=== PATIENT | female | born 1955 | race Caucasian/White ===

== ENCOUNTER → 2024-05-08 19:03 | Outpatient (REF) | payer MEDICARE, OTHER, SELFPAY | LOC: WDC 19:03 | PROVIDERS: ATTENDING PHYSICIAN Family Medicine | DX: Z12.31 Encounter for screening mammogram for malignant neoplasm of breast (principal) | CPT/HCPCS: 77063; 77067 ==

== ENCOUNTER → 2024-07-02 08:42 | Outpatient (REF) | payer MEDICARE, OTHER, SELFPAY ==
[2024-07-02 10:03] LABS: % Immature Granulocytes 0.2 % (0-0.5); % Lymphocytes 38.7 % (20.5-51.1); % Monocytes 9.8 % (1.7-9.3); % Neutrophils 47.3 % (42.2-75.2); Absolute Basophils 0.1 10^3/uL (0-0.2); Absolute Eosinophils 0.2 10^3/uL (0-0.7); Absolute Lymphocytes 2.3 10^3/uL (1.2-3.4); Absolute Monocytes 0.6 10^3/uL (0.1-0.6); Absolute Neutrophils 2.8 10^3/uL (1.4-6.5); Hematocrit 38.2 % (37.0-47.0); Mean Corp Hgb Conc. 31.4 g/dL (33.0-37.0); Mean Corpuscular Hgb 24.5 pg (27.0-31.0); Mean Corpuscular Volume 78.1 fL (81.0-99.0); Mean Platelet Volume 10.2 fL (7.4-10.4); Nucleated Red Blood Cells % 0 %; Platelet Count 385 10^3/uL (130-400); Red Blood Cell Count 4.89 10^6/uL (4.20-5.40); Red Cell Dist. Width 15.6 % (11.5-14.5)
[2024-07-02 10:36] LABS: ALT (SGPT) 22 U/L (0-35); AST (SGOT) 22 U/L (14-36); Albumin 4.1 g/dl (3.5-5.0); Alkaline Phosphatase 71 U/L (38-126); Blood Urea Nitrogen 12 mg/dl (7-17); Calcium 9.8 mg/dl (8.4-10.2); Carbon Dioxide 27 mmol/L (22-30); Chloride 108 mmol/L (98-107); Glucose 89 mg/dl (70-99); HDL Cholesterol 74 mg/dl; LDL Cholesterol, Calculated 120 mg/dl; Potassium 4.9 mmol/L (3.5-5.1); Sodium 143 mmol/L (135-145); Total Bilirubin 0.6 mg/dl (0.2-1.3); Total Cholesterol 205 mg/dl (50-199); Total Protein 6.6 g/dl (6.3-8.2); Triglyceride 57 mg/dl (10-149); Very Low Density Lipoprotein 11 mg/dl (0-30); eGFR > 60.00
[2024-07-02 10:42] LABS: Vitamin D, 25-OH*** 44.2 ng/mL (30-80)
[2024-07-02 10:55] LABS: TSH 2.48 uIU/ml (0.47-4.68)
== END ==
LOC: REG 08:42
PROVIDERS: ATTENDING PHYSICIAN Family Medicine
DX: Z76.89 Persons encountering health services in other specified circumstances (principal); Z01.89 Encounter for other specified special examinations; Z13.220 Encounter for screening for lipoid disorders; E55.9 Vitamin D deficiency, unspecified; M85.88 Other specified disorders of bone density and structure, other site; Z13.6 Encounter for screening for cardiovascular disorders
CPT/HCPCS: 36415; 80053; 80061; 82306; 84443; 85025

== ENCOUNTER → 2024-07-11 07:33 | Outpatient (REF) | payer MEDICARE, OTHER, SELFPAY | LOC: HWRAD 07:33 | PROVIDERS: ATTENDING PHYSICIAN Family Medicine | DX: R39.15 Urgency of urination (principal); Z87.440 Personal history of urinary (tract) infections | CPT/HCPCS: 76770 ==

== ENCOUNTER → 2024-07-12 10:09 | Outpatient (REF) | payer MEDICARE, OTHER, SELFPAY | LOC: HWRAD 10:09 | PROVIDERS: ATTENDING PHYSICIAN Family Medicine | DX: R19.00 Intra-abdominal and pelvic swelling, mass and lump, unspecified site (principal) | CPT/HCPCS: 76830; 76856 ==

== ENCOUNTER → 2024-07-24 10:05 | Outpatient (REF) | payer MEDICARE, OTHER, SELFPAY | LOC: HWRAD 10:05 | PROVIDERS: ATTENDING PHYSICIAN Specialist; FAMILY PHYSICIAN Family Medicine | DX: N20.0 Calculus of kidney (principal) | CPT/HCPCS: 74176 ==

== ENCOUNTER → 2024-10-09 07:18 | Outpatient (REF) | payer MEDICARE, OTHER, SELFPAY | LOC: PAVMRI 07:18 | PROVIDERS: ATTENDING PHYSICIAN Obstetrics & Gynecology Gynecology; FAMILY PHYSICIAN Family Medicine | DX: N94.89 Other specified conditions associated with female genital organs and menstrual cycle (principal) | CPT/HCPCS: 72197; A9575 ==

== ENCOUNTER → 2024-10-22 12:10 | Outpatient (REF) | payer MEDICARE, OTHER, SELFPAY | LOC: SDSPAT 12:10 | PROVIDERS: ATTENDING PHYSICIAN Obstetrics & Gynecology Gynecologic Oncology; FAMILY PHYSICIAN Family Medicine | DX: R19.04 Left lower quadrant abdominal swelling, mass and lump (principal) | CPT/HCPCS: 36415; 86850; 86900; 86901; 93005 ==

== ENCOUNTER → 2024-10-25 10:20 | Outpatient (REF) | payer MEDICARE, OTHER, SELFPAY ==
[2024-10-25 11:09] LABS: Hematocrit 41.5 % (37.0-47.0); Hemoglobin 13.0 g/dL (12.0-16.0); Mean Corp Hgb Conc. 31.3 g/dL (33.0-37.0); Mean Corpuscular Volume 76.7 fL (81.0-99.0); Nucleated Red Blood Cells % 0 %; Platelet Count 333 10^3/uL (130-400); Red Cell Dist. Width 18.6 % (11.5-14.5)
[2024-10-25 11:17] LABS: INR 0.94; PT 12.9 Sec (11.4-14.6)
[2024-10-25 11:18] LABS: APTT 24.9 Sec (23.4-35.0)
[2024-10-25 11:31] LABS: Urine Character Clear (Clear)
[2024-10-25 11:57] LABS: CA 125 < 5.5 U/mL (0-35)
[2024-10-25 12:27] LABS: ALT (SGPT) 17 U/L (0-35); AST (SGOT) 19 U/L (14-36); Albumin 4.3 g/dl (3.5-5.0); Alkaline Phosphatase 63 U/L (38-126); Blood Urea Nitrogen 13 mg/dl (7-17); Calcium 9.4 mg/dl (8.4-10.2); Carbon Dioxide 23 mmol/L (22-30); Chloride 109 mmol/L (98-107); Glucose 88 mg/dl (70-99); LDH 185 U/L (120-246); Potassium 4.4 mmol/L (3.5-5.1); Sodium 139 mmol/L (135-145); Total Protein 6.8 g/dl (6.3-8.2); eGFR > 60.00
[2024-10-25 12:48] LABS: CEA 1.72 ng/ml
[2024-10-26 19:53] LABS: CA 19-9 22 U/mL (<=35)
== END ==
LOC: REG 10:20
PROVIDERS: ATTENDING PHYSICIAN Obstetrics & Gynecology Gynecologic Oncology; FAMILY PHYSICIAN Family Medicine
DX: R19.04 Left lower quadrant abdominal swelling, mass and lump (principal); Z12.9 Encounter for screening for malignant neoplasm, site unspecified; C48.2 Malignant neoplasm of peritoneum, unspecified; E07.9 Disorder of thyroid, unspecified; Z01.812 Encounter for preprocedural laboratory examination; Z79.899 Other long term (current) drug therapy
CPT/HCPCS: 36415; 80053; 81003; 81015; 82378; 83615; 84443; 85025; 85610; 85730; 86301; 86304; 87086

== ENCOUNTER 2024-11-04 06:12 | Day surgery (SDC) | payer MEDICARE, OTHER, SELFPAY ==
[2024-10-22 14:14] VITALS: BMI 26.2
--- NOTE | 2024-10-28 13:42 | PTCARENOTE ---
Abnormal EKG reviewed by Dr. Tucker, no further action requested.
--- NOTE | 2024-10-31 17:14 | W.CON.GYNONC ---
Consultation
-
Reason for Consultation: LLQ mass
Chief Complaint
-
LLQ mass
History of Present Illness
69�year�old�G4�P4�0�0�4�white�female�menopausal�since�mid�40s�who�is�presenting�as�a�referral�from�Dr.�Gerstein�for�a�left�pelvic mass.
Patient�used�to�live�in�[place],�moved�to�this�area�approximately�2�years�ago�because�of�divorce�from�her�
and�now�lives�with�her�daughter.�She�establish�primary�care�with�Dr.�Soumya�Janneth.�Prior�gynecologic�care�was�provided�by�Dr. Gruby,�she�informs�me�that�at�age�45�because�of�heavy�bleeding�she�underwent�an�ablation�procedure,�she�continued�to�have
annual�visits�including�1�within�the�last�2�years�and�generally�her�exams�were�within�normal�limits�and�a�Pap�smear�was�done
almost�a�year�ago�which�was�normal.�She�denies�any�vaginal�bleeding�or�discharge.�Patient�reports�that�she�has�had�some�issues
with�her�bladder�going�to�the�bathroom�often,�PCP�ordered�a�pelvic�ultrasound�which�shows�on��uterus�normal�size�9.5 cm�endometrial�thickening�2�mm,�no�abnormal�solid�or�complex�adnexal�masses�present�however�left�ovary�measured�2.9�cm
containing�a�simple�cyst�2.5�cm.�Right�ovary�was�not�visualized.�CT�of�abdomen�and�pelvis�was�done�without�IV�or�oral�contrast
�for�evaluation�of�calculus�of�kidney,�bilateral�nonobstructive�nephrolithiasis�demonstrated,�in�the�left�adnexa�there�is�a
2.9�cm�low�attenuation�structure�along�the�left�adnexa�correlating�with�a�cyst,�just�above�this�level�there�is�a�complex�solid�mass,
measuring�4.7�x�3.4�x�3.5�cm.�There�are�calcifications�all�somewhat�eggshell�type�appearance�with�irregularity.�There�is�a
suggestion�of�some�internal�fat�attenuation.�Differential�diagnosis�was�of�an�ovarian�dermoid�but�not�definitive.�Patient�was�referred�to
�for�gynecologic�evaluation,�this�was�her�first�visit�with�her,�apparently�a�CA125�was�ordered�which�was�normal,�but�I�do
not�have�these�results.�An�MRI�performed�Tammy�,�2024�indicates�right�ovary�2�cm�with�a�normal�postmenopausal�appearance.�Left
ovary�measuring�4.1�x�3.9�x�6.1�cm�replaced�by�a�multiloculated�fluid�intensity�mass�measuring�4.1�cm,�there�is�partial�calcific�rim
and�partial�calcified�septations.�There�is�mildly�enhancing�smith�and�some�of�the�septations�considerable�enhancement.�One�of�the locules�contains�hemorrhage�or�proteinaceous�material.�Patient�is�absolutely�asymptomatic
Past�medical�history�significant�for�nephrolithiasis,�osteoporosis Past�surgical�history�includes�total�hip�replacement�15�and�2�years�ago�right�and�left�side,�endometrial�ablation Medications�none
Social�history�retired�kindergarten�teacher,�denies�tobacco�alcohol�drug�or�marijuana�use,�she�is��not�sexually�active
Family�history�significant�for�mother�with�breast�cancer,�sister�with�breast�cancer��at�age�72,�2�brothers�both�with�breast�cancer
in�their�70s.�Of�note�patient�has�had�genetic�testing�performed�previously�by�her�marine transport professionals�which�was�negative�for�any�deleterious mutations.
Past�gynecologic�history�significant�for�menarche�at�age�15,�menopause�at�age�45,�first�child�born�at�age�23,�4�full�term pregnancies��x�4
Medical History
Allergies
Allergies reflect when allergies were last updated in [facility].
No Known Drug Allergies Allergy (Verified 10/22/24 10:09)
na
pollen extracts Allergy (Verified 08/12/25 10:09)
sneezing,etc.
Physical Exam
Physical Exam
Pelvic�Examination: External�normal�labia,�urethra,�anus.�
Vagina:�Normal�mucosa.� Cervix:�normal�appearance,�no�discharge.�
Uterus:�normal�size.�
Adnexa:�No�pelvic�mass.�There�is�no�suggestion�of�nodularity�or�fixation�in�the�pelvic�exam
RVE:�no�masses�or�nodularity
General:�Well�developed,�well�nourished�patient.�In�no�acute�distress. Neck:�No�thyromegaly.�No�cervical�lymphadenopathy.
Lungs:�Clear�to�auscultation.�Good�air�movement�bilaterally.
Cardiac:�Regular�rate.�Regular�rhythm.�No�murmurs�appreciated.
Right�Breast:�No�masses�or�dimpling.�No�nipple�discharge.
Left�Breast:�No�masses�or�dimpling.�No�nipple�discharge.
Abdomen:�Abdomen�is�soft.�Non�tender�to�palpation.�Non�distended.
Extremities:�No�edema. Hematologic/Lymphatic:�No�palpable�lymphadenopathy.
Musculoskeletal:�Normal�range�of�motion.�Strength�and�Tone�are�normal.
Skin:Non�jaundiced.�No�petechia.�No�purpura.
Neurologic:�Speech�is�fluent.�Normal�gait�and�station.�Cranial�nerves�intact.
Impression / Plan
-
69�year�old with incidentally identified 4 x 6 cm multiseptated cystic mass with some calcification involving left lower quadrant
suspected to be from left ovary. The remainder of the CT scan does not show any evidence of ascites or omental nodularity or
retroperitoneal adenopathy however the CT scan was done without any IV contrast. My overall assessment is that this is probably a
benign process. Her family history is significant for 2 male members with breast cancer and a mother with breast cancer highly
suggestive of BRCA2 mutation. The patient tells me that she herself does not have any mutations identified on germline testing. My
recommendation is for surgical management. I am recommending robotic assisted total laparoscopic hysterectomy with bilateral
salpingo�oophorectomy for definitive management, intraoperative consultation with pathology and if there is any evidence of
malignancy additional staging procedures to be performed but not limited to pelvic and aortic lymph node biopsies peritoneal
biopsies and washings, omentectomy and comprehensive evaluation of the abdomen to excise any residual or suspected tumor
with the goal of optimal complete cytoreduction.
In preparation for surgery labs were ordered including tumor marker CA125 CEA and CA 19�9
I am suspicious that she might have had retrograde menstruation after ablation resulting in dilated fallopian tube with some
hemorrhage within it although she is asymptomatic and does not have any pain associated with it. Possibility of a benign teratoma
cannot be excluded
Surgery will be done at [facility] 11/04/2024
The patient will need to undergo medical clearance from her primary care physician in the interim.
We discussed risks of surgery, informed consent was signed in the office today. She will be notified by hospital for preadmission
process. Recovery from surgery was reviewed with the patient and restrictions discussed
[2024-11-04] VITALS (11 sets, daily range): BP systolic 112–145; BP diastolic 69–79; BMI 26.2
[2024-11-04] MEDS: CELEBREX 200 MG PO (07:05)
[2024-11-04] MEDS: TYLENOL 1000 MG PO (07:06)
[2024-11-04] MEDS: NEURONTIN 300 MG PO (07:06)
[2024-11-04] MEDS: HEPARIN 5000 UNITS SC (07:06)
[2024-11-04] MEDS: NORMOSOL-R/PLASMALYTE-A 1000 IV (07:27)
--- NOTE | 2024-11-04 09:31 | OR.RPT ---
Operative Report
Operative Report
Date of procedure: November 04, 2024
Primary Surgeon: Arturo Giang
Assisting Surgeon: Maci Bruno PA-C
Pre-op Diagnosis: Left lower quadrant mass
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
Procedure Performed: Robotic assisted total laparoscopic hysterectomy , bilateral salpingo-oophorectomy, pelvic washings
Anesthesia Type: General endotracheal intubation, tap block
Specimen / Cultures: Uterus and cervix with bilateral tubes and ovaries
Estimated Blood Loss: 50 cc
Complications: None
Operative Findings:
Upper abdomen including liver spleen stomach bilateral diaphragms are normal visualized portions of small and large bowel within normal limits. Left fallopian tube and right fallopian tubes are normal, left ovary is enlarged multicystic partially
calcified adherent to mesentery of the left colon. Right ovary is atrophic and normal. Uterus is otherwise normal. There is no peritoneal implants omentum is unremarkable, there is no ascites upper abdomen including liver stomach right and left
diaphragms falciform ligament are normal
Operative procedure in detail: This patient was taken to the operating room for definitive management of left ovarian complex mass. Upon arrival to the operating room she was placed in supine position. Appropriate IVs were placed and she was
placed under general anesthesia and intubated. She was positioned in lithotomy position using yellowfin stirrups and prepped in the abdomen perineum and vagina we ensured that her neck shoulders as well as arms and extremities were probably
positions and there was no excessive pressure on any of them. Timeout procedure was carried out, she received combination of Ancef and Flagyl for prophylaxis. Gomez catheter was inserted under sterile conditions in the bladder. Anterior lip of
the cervix was grasped with single-tooth tenaculum and cervical canal was dilated, due to the prior endometrial ablation this was difficult and I did not feel that it went into the cervical canal, Uterine manipulator nurse staff type with 2.5 cm NEREYDA
ring was placed in the uterine cavity and vaginal cuff occluder was insufflated.
Following this attention was turned abdominally, Veress needle was inserted just below the left subcostal margin, pneumoperitoneum was created up to pressure of 15 mmHg. XI robotic port was inserted at 25 cm cephalad to symphysis pubis into the
peritoneal cavity, tap block with combination of ropivacaine and Decadron was injected 2 fingerbreadths below right and left lateral aspect of subcostal margin and also right and left lateral mid abdomen. 8 mm XI robotic ports were inserted right
and left upper quadrants right and left lateral abdomen. Survey of the abdomen was performed with the findings noted above.
The patient was placed in 28 degree Trendelenburg, and the robotic system was docked. Pelvic washings were collected from the posterior cul-de-sac and was submitted to pathology for cytological evaluation. Right and left round ligaments were
sealed and divided anterior and posterior leaves of the broad ligament were dissected open. Both infundibulopelvic ligaments were isolated . A window was opened between the ureter and IP ligament. Adhesions between the colon and left ovary were
taken down sharply. The course of ureter was visualized bilaterally. Both IP ligaments were sealed and divided, tubes and ovaries were left attached to the uterus. Next,vesicouterine space was developed. Right and left retroperitoneal spaces
were opened Uterine arteries followed by cardinal ligaments followed by uterosacral ligaments were serially sealed and divided circumferential incision was made over the NEREYDA ring. I was able to detach the uterine manipulator, uterus was removed
vaginally. The vagina was examined there were no lacerations or bleeding. Once this was completed the vaginal cuff was closed with 0 Vicryl suture ligature on right and left apices incorporating uterosacral ligaments for support. V-Loc suture was
used to close the cuff starting from right going to the left and coming back in a second layer. Good hemostasis was present we irrigated the pelvis copiously and there was no additional foci or concern for bleeding. Frozen section of the ovary
revealed no evidence of malignancy. There were islands of thyroid tissue recognized that may be suggestive of struma ovarian I, given absence of malignancy I did not perform any formal staging procedures.
Robotic system was undocked, all 8 mm port sites were closed with 4-0 Monocryl in a subcuticular fashion. Skin glue was applied to all of them. I did examine the vagina at the completion of the surgery there was no evidence of vaginal lacerations
or bleeding. Gomez catheter was removed. Patient returned back to recovery room stable awake and extubated condition. counts of laps instruments and needle was correct x 2. I was present and scrubbed for entire procedure as dictated above
Disposition: To PACU stable awake and extubated.
== END 2024-11-04 13:25 | disposition home or self-care (01) ==
LOC: SDS 06:12
PROVIDERS: ATTENDING PHYSICIAN Obstetrics & Gynecology Gynecologic Oncology; FAMILY PHYSICIAN Family Medicine
DX: D27.1 Benign neoplasm of left ovary (principal); N84.0 Polyp of corpus uteri
CPT/HCPCS: 58571; 86900; 86901; 88112; 88307; 88311; 88331

== ENCOUNTER → 2024-11-26 12:47 | Outpatient (REF) | payer MEDICARE, OTHER, SELFPAY ==
[2024-11-26 14:15] LABS: Urine Character Clear (Clear)
[2024-11-26 14:50] LABS: Urine Squamous Cell 0-2 /LPF (Few)
[2024-11-26 14:52] LABS: Urine White Cell 30-40 /HPF (0-5)
== END ==
LOC: REG 12:47
PROVIDERS: ATTENDING PHYSICIAN Specialist; FAMILY PHYSICIAN Family Medicine
DX: N39.0 Urinary tract infection, site not specified (principal)
CPT/HCPCS: 36415; 81003; 81015; 87077; 87086; 87186

== ENCOUNTER → 2024-12-09 09:10 | Outpatient (REF) | payer MEDICARE, OTHER, SELFPAY | LOC: REG 09:10 | PROVIDERS: ATTENDING PHYSICIAN Obstetrics & Gynecology Gynecologic Oncology | DX: R19.04 Left lower quadrant abdominal swelling, mass and lump (principal); Z12.9 Encounter for screening for malignant neoplasm, site unspecified; C48.2 Malignant neoplasm of peritoneum, unspecified; E07.9 Disorder of thyroid, unspecified; Z01.812 Encounter for preprocedural laboratory examination; D27.1 Benign neoplasm of left ovary | CPT/HCPCS: 36415; 84443 ==

== ENCOUNTER → 2024-12-16 09:59 | Outpatient (REF) | payer MEDICARE, OTHER, SELFPAY ==
[2024-12-16 11:00] LABS: Urine Character Clear (Clear)
[2024-12-16 11:51] LABS: Urine Urothelial Cell 0-2 /LPF (FEW)
[2024-12-16 11:52] LABS: Urine Red Blood Cell 16-20 /HPF (0-2); Urine White Cell 0-2 /HPF (0-5)
== END ==
LOC: REG 09:59
PROVIDERS: ATTENDING PHYSICIAN Physician Assistant Surgical; FAMILY PHYSICIAN Family Medicine
DX: R19.04 Left lower quadrant abdominal swelling, mass and lump (principal); Z12.9 Encounter for screening for malignant neoplasm, site unspecified; C48.2 Malignant neoplasm of peritoneum, unspecified; E07.9 Disorder of thyroid, unspecified; Z01.812 Encounter for preprocedural laboratory examination; D27.1 Benign neoplasm of left ovary; N39.0 Urinary tract infection, site not specified
CPT/HCPCS: 81003; 81015; 87086